=== PATIENT | female | born 1955 | race Caucasian/White ===

== ENCOUNTER 2018-08-13 08:16 | Day surgery (SDC) | payer BC ==
[~2018-08-13] VITALS: Ht 162.6 cm; Wt 80.3 kg
[~2018-08-13 08:16] MED LIST: AMOX500 PO; Amaryl1 MG; B-122500 MCG; CENTRUM ADULTS1 EACH; CHOL10002; Cyclobenzaprine5 MG PO; Hair, Skin & N1 EACH PO; LISI5 PO; METF500; METF500 PO; OMEP20ER PO; OXAZEPAM; Omeprazole20 M1 PO; PRAVASTATIN SOD10 MG; PRAVASTATIN SOD10 MG PO; SPIR25 PO; TOUJEO SOL300 UNIT/1 SC
== END 2018-08-13 09:20 | disposition home or self-care (01) ==
LOC: ORSCSDS 08:16
PROVIDERS: Internal Medicine Gastroenterology
PROC: 0DJ08ZZ Inspection of Upper Intestinal Tract, Via Natural or Artificial Opening Endoscopic (ICD-10-PCS; principal; 2018-08-13 09:30)
DX: I85.00 Esophageal varices without bleeding (principal); K70.30 Alcoholic cirrhosis of liver without ascites; E11.9 Type 2 diabetes mellitus without complications; E78.5 Hyperlipidemia, unspecified; J44.9 Chronic obstructive pulmonary disease, unspecified; Z87.891 Personal history of nicotine dependence; Z79.899 Other long term (current) drug therapy
CPT/HCPCS: 82947; J2704; J7120

== ENCOUNTER 2024-06-24 09:50 | Day surgery (SDC) | payer MEDICARE, BC ==
[~2024-06-24 09:50] MED LIST changes: +Lactated Ringer's 1,000 ML IV ONE; +propofoL 50 ML IV ONE
[2024-06-24] MEDS ORDERED: TRULICITY3 MG/0.5 M (10:54)
[2024-06-24] MEDS ORDERED: REPATHA SU140 MG/1 M (10:54)
[2024-06-24] MEDS ORDERED: SITA100T2 (10:54)
[2024-06-24] MEDS ORDERED: GLIM2 (10:55)
[2024-06-24] MEDS ORDERED: CORGARD80 MG (10:55)
[2024-06-24] MEDS ORDERED: Lactated Ringer's 1,000 ML IV ONE (11:38)
--- NOTE | 2024-06-24 11:56 | NUR ---
06/24/24 1156 Ely Gee PT. VERBALIZES HAVING NECK PAIN RATING "8" FROM SURGERY 2 YEARS AGO.
[2024-06-24 12:24] VITALS: BP 154/57
== END 2024-06-24 12:28 | disposition home or self-care (01) ==
LOC: ORSCSDS 09:50
PROVIDERS: Specialist
PROC: 0DJ08ZZ Inspection of Upper Intestinal Tract, Via Natural or Artificial Opening Endoscopic (ICD-10-PCS; principal; 2024-06-24 11:15)
DX: K74.60 Unspecified cirrhosis of liver (principal); K44.9 Diaphragmatic hernia without obstruction or gangrene; I10 Essential (primary) hypertension; E78.5 Hyperlipidemia, unspecified; E11.9 Type 2 diabetes mellitus without complications; Z79.85 Long-term (current) use of injectable non-insulin antidiabetic drugs; Z79.899 Other long term (current) drug therapy
CPT/HCPCS: 82947; J2704; J7120